=== PATIENT | female | born 1940 | race Hispanic/Latino ===

== ENCOUNTER 2020-02-09 15:31 | Inpatient (IN) | payer MEDICARE ==
[~2020-02-09] VITALS: Ht 165.1 cm; Wt 108.4 kg
[2020-02-09] MEDS ORDERED: NITROGLYCERIN 0.4 MG SL TAB SL PRN (17:15)
[2020-02-09] MEDS ORDERED: ACETAMINOPHEN 325 MG TAB PO PRN (17:15)
[2020-02-09] MEDS ORDERED: HYDRALAZINE HCL 20 MG/ML VIAL IV PRN (17:15)
[2020-02-09] MEDS ORDERED: MEPERIDINE-PF 25 MG/ML SYG ONE (17:23)
[2020-02-09] MEDS ORDERED: BUPIVACAINE/PF 0.25% 30ML VIAL IJ ONE (17:23)
[2020-02-09] MEDS ORDERED: MIDAZOLAM HCL 1 MG/ML 2ML VIAL ONE (17:23)
[2020-02-09] MEDS ORDERED: VANCOMYCIN 1GM+NS 250ML 500 ML IV ONE (17:24)
[2020-02-09] MEDS ORDERED: LIDOCAINE HCL 1% MDV 50ML VIAL ONE (17:24)
[2020-02-09 19:00] VITALS: BP 138/57
[2020-02-09] MEDS ORDERED: PHARMACY COMMUNICATION MISC SCH (19:00)
[2020-02-09] MEDS: FAMOTIDINE/PF 20 MG/2 ML VIAL IV SCH (20:30)
[2020-02-09 21:22] LABS: BASOPHILS % (AUTO) 0.8 % (0.0-5.0); EOSINOPHILS % (AUTO) 0.8 % (0.0-8.0); HEMATOCRIT 35.1 % (36-48); MEAN CORPUSCULAR HEMOGLOBIN 28.9 pg (27.0-33.0); MEAN CORPUSCULAR HGB CONC 30.8 g/dL (32.0-36.0); MEAN CORPUSCULAR VOLUME 93.9 fL (79-99); MONOCYTES % (AUTO) 1.6 % (3.0-13.0); NEUTROPHILS % (AUTO) 61.8 % (40.0-77.0); PLATELET COUNT (AUTO) 149 K/uL (130-400); RED BLOOD CELL COUNT(AUTO) 3.74 MIL/uL (4.00-5.50); RED CELL DISTRIBUTION WIDTH 16.1 % (11.0-15.5); WHITE BLOOD COUNT (AUTO) 1.3 K/uL (4.8-10.8)
[2020-02-09 21:32] LABS: INR 1.02 (0.85-1.15)
[2020-02-09 21:35] LABS: ALBUMIN 2.4 g/dL (3.5-5.0); CREATININE 1.3 mg/dL (0.5-1.5); POTASSIUM 3.6 mmol/L (3.5-5.1); TOTAL PROTEIN, SERUM 6.6 g/dL (6.0-8.3)
[2020-02-09 23:00] VITALS: BP 120/67
[2020-02-10 03:00] VITALS: BP 101/58
[2020-02-10 08:00] VITALS: BP 101/60
[2020-02-10] MEDS: FAMOTIDINE/PF 20 MG/2 ML VIAL IV SCH (08:17)
[2020-02-10 12:00] VITALS: BP 96/69
--- NOTE | 2020-02-10 13:18 | NUR ---
MED TAMI SPOKE TO MICA GRIFFIN, FROM [facility]; STATED SHE WOULD FAX PATIENT MEDICATION LIST TOY
--- NOTE | 2020-02-10 15:26 | NUR ---
INITIAL: Call placed to EC on Faces[employer]. Spoke w Anna Mcintyrea(pt's sister). Prior to admission pt was @ [facility]. 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 Per Anna, pt was mostly wc bound and requires assistance w ADLs. Anna mentions that dcp is for pt to return to [facility]. Informed Mrs. Bg Yin that there are currently no dc orders but CM will continue to follow along and wait for Md recommendations. Addendum: 02/10/20 at 1529 by KOTA SUÁREZ Amended: Links added.
[2020-02-10 16:00] VITALS: BP 93/49
[2020-02-10] MEDS ORDERED: FAMO20TA8 PO (16:14)
[2020-02-10] MEDS ORDERED: BETH10 PO (16:14)
[2020-02-10] MEDS ORDERED: CALC-190 PO (16:14)
[2020-02-10] MEDS ORDERED: CALC-1062 PO (16:14)
[2020-02-10] MEDS ORDERED: RISP2TAB22 PO (16:14)
[2020-02-10] MEDS ORDERED: FERR324T4 PO (16:14)
[2020-02-10] MEDS ORDERED: DOCU100C33 PO (16:14)
[2020-02-10] MEDS ORDERED: MEMA5TAB42 PO (16:14)
[2020-02-10] MEDS ORDERED: LORA-705 PO (16:14)
[2020-02-10] MEDS ORDERED: ASPI-556 PO (16:14)
[2020-02-10] MEDS ORDERED: CALC-17 PO (16:14)
[2020-02-10] MEDS ORDERED: POLY17PO4 PO (16:14)
[2020-02-10] MEDS ORDERED: LEVE-43 PO (16:14)
[2020-02-10] MEDS ORDERED: DONE10TA8 PO (16:14)
[2020-02-10] MEDS ORDERED: OXYB5TAB15 PO (16:14)
[2020-02-10] MEDS ORDERED: GABA-531 PO ×2 (16:14)
--- NOTE | 2020-02-10 16:30 | NUR ---
HANDOFF REPORT BEDSIDE HANDOFF REPORT GIVEN TO DORIS CORBIN; PATIENT RESTING COMFORTABLY IN BED AT THIS TIME
--- NOTE | 2020-02-10 18:20 | NUR ---
[facility] CALLED SENIOR CARE AT THIS TIME TO RESEND MEDICATION LIST, NO ANSWER FROM THE NURSE. PENDING CALL BACK.
--- NOTE | 2020-02-10 18:50 | NUR ---
DR. DONOVAN MAN AT BEDSIDE TO SEE AND EVALUATE PATIENT. HE WAS MADE AWARE THAT PATIENT HAS BEEN UNRESPONSIVE, ONLY RESPONDING TO PAINFUL STIMULI. HE STATED HE WILL RESUME HOME MEDICATIONS TO SEE IF SHE GOES BACK TO HER BASELINE. HE ALSO STATED TO CALL LONGTERM TO FIND OUT PATIENT'S BASELINE NEURO STATUS. NIGHT NURSE AWARE TO CALL LONGTERM.
[2020-02-10 19:00] VITALS: BP 91/48
[2020-02-10] MEDS ORDERED: POLYETHYLENE GLYCOL 3350 17 GM POWD.PACK PO PRN (19:15)
--- NOTE | 2020-02-10 19:40 | NUR ---
PM Assessment Received pt noted response only to painful stimulation, noted would randomly moved her head to side to side, non verbal. Hand mitten taken off as pt not noted to pull anything at this time. Both arms noted to be flaccid at this time. Pt does not follow nor responds to any command. Reported that Dr. Garcia had rounded on this pt aware of current status, & would like to verify from the [facility] pt activity & responsiveness prior to transfer. Oral care rendered noted would bite the swab gently but re- opens her mouth randomly, mouth breather.
[2020-02-10] MEDS: RISPERIDONE 1 MG TABLET PO SCH (21:00)
[2020-02-10] MEDS: DOCUSATE SODIUM 100 MG CAP PO SCH (21:00)
[2020-02-10] MEDS: DONEPEZIL HCL 5 MG TAB PO SCH (21:00)
[2020-02-10] MEDS: LEVETIRACETAM 500 MG TABLET PO SCH (21:00)
[2020-02-10] MEDS: OXYBUTYNIN CHLORIDE 5 MG TABLET PO SCH (21:00)
[2020-02-10] MEDS: GABAPENTIN 300 MG CAPSULE PO SCH (21:00)
--- NOTE | 2020-02-10 21:45 | NUR ---
Re: HS scheduled medications Page & called back ACCOUNT SERVICE REPRESENTATIVE Rimma Shea made aware that I was not able to give any of pt's home medications that was ordered to resumed this evening by Dr. Garcia, stated to hold tonight's dose & see how pt will be tomorrow as pt only responds to painful stimulations, vs stable.
[2020-02-10 23:00] VITALS: BP 95/54
[2020-02-11 03:00] VITALS: BP 118/51
--- NOTE | 2020-02-11 04:45 | NUR ---
Re-Assessment Pt noted awake at this time, able to response on simple open ended questions, offered some water, pt manage to hold the cup & drank about 50cc water. Hand mitten re- applied as pt starts to try to scratch her PPM incision site & pull her saline lock. Pt denies any pain/discomfort at this time.
[2020-02-11 07:38] LABS: HEMATOCRIT 33.3 % (36-48); MEAN CORPUSCULAR HEMOGLOBIN 28.8 pg (27.0-33.0); MEAN CORPUSCULAR HGB CONC 32.4 g/dL (32.0-36.0); MEAN CORPUSCULAR VOLUME 88.8 fL (79-99); PLATELET COUNT (AUTO) 116 K/uL (130-400); RED BLOOD CELL COUNT(AUTO) 3.75 MIL/uL (4.00-5.50); RED CELL DISTRIBUTION WIDTH 16.5 % (11.0-15.5); WHITE BLOOD COUNT (AUTO) 9.6 K/uL (4.8-10.8)
[2020-02-11 07:48] LABS: ALBUMIN 2.1 g/dL (3.5-5.0); BILIRUBIN,TOTAL 0.5 mg/dL (0.2-1.0); POTASSIUM 4.1 mmol/L (3.5-5.1); TOTAL PROTEIN, SERUM 6.1 g/dL (6.0-8.3)
[2020-02-11 08:00] VITALS: BP 98/61
[2020-02-11] MEDS: ASPIRIN 81 MG EC TAB PO SCH (08:33)
[2020-02-11] MEDS: DOCUSATE SODIUM 100 MG CAP PO SCH ×3 (08:34→20:47)
[2020-02-11] MEDS: BETHANECHOL PO SCH ×2 (08:34→20:19)
[2020-02-11] MEDS: MEMANTINE HCL 5 MG TABLET PO SCH (08:34)
[2020-02-11] MEDS: CALCIUM 600 + VITAMIN D 400 TABLET PO SCH (08:34)
[2020-02-11] MEDS: FERROUS SULFATE 325 MG TABLET.DR PO SCH (08:34)
[2020-02-11] MEDS: LEVETIRACETAM 500 MG TABLET PO SCH (08:34)
[2020-02-11] MEDS: LORATADINE 10 MG TABLET PO SCH (08:34)
[2020-02-11] MEDS: FAMOTIDINE 20MG TAB 20 MG TAB PO SCH (08:35)
[2020-02-11] MEDS: OXYBUTYNIN CHLORIDE 5 MG TABLET PO SCH ×3 (08:35→20:48)
[2020-02-11] MEDS: GABAPENTIN 300 MG CAPSULE PO SCH ×3 (08:35→20:48)
[2020-02-11] MEDS: CALCIUM CARBONATE 500 MG TABLET PO SCH (08:35)
[2020-02-11 09:37] LABS: BAND NEUTROPHILS % (MANUAL) 2 % (0-2); EOSINOPHILS % (MANUAL) 22 % (1-6); LYMPHOCYTES % (MANUAL) 22 % (22-44); MONOCYTES % (MANUAL) 1 % (2-9); PLATELET MORPHOLOGY COMMENT SLIGHTLY DECREASED; REACTIVE LYMPHOCYTES 2 % (0-0); SEGMENTED NEUTROPHILS % 51 % (40-70)
--- NOTE | 2020-02-11 10:00 | NUR ---
[address] Garcia called and made aware patient is lethargic and unable to eat received orders for infectious workup and neurology consult.
[2020-02-11] MEDS ORDERED: DEXTROSE 50%-WATER 50 ML DISP.SYRIN IV ONE (10:04)
[2020-02-11] MEDS ORDERED: SODIUM CHLORIDE 0.9% 500ML 500 ML IV ONE ×2 (10:15→10:22)
[2020-02-11] MEDS ORDERED: COMPOUND IV MISC 1 EACH IVSOLN MISC PRN (10:45)
[2020-02-11 10:59] LABS: % IRON SATURATION 34.2 % (22-44)
[2020-02-11] MEDS: LEVETIRACETAM 500 MG in SODIUM CHLORIDE 0.9% 100 ML IV SCH ×2 (11:02→20:18)
[2020-02-11 11:21] LABS: POTASSIUM 3.9 mmol/L (3.5-5.1)
[2020-02-11 11:22] LABS: APPEARANCE,URINE Turbid (CLEAR); BILIRUBIN,URINE Small (NEGATIVE); COLOR,URINE Dark Yellow (YELLOW); GLUCOSE, URINE (UA) Negative (NEGATIVE); KETONES,URINE Trace mg/dL (NEGATIVE); LEUKOCYTE ESTERASE ,URINE Large (NEGATIVE); NITRATE,URINE Positive (NEGATIVE); OCCULT BLOOD,URINE Moderate (NEGATIVE); PROTEIN,URINE POS 1+ mg/dL (NEGATIVE)
[2020-02-11 11:51] LABS: BACTERIA,URINE Moderate /HPF (None Seen); MUCUS,URINE Few LPF (None Seen); WBC,URINE Full Field /HPF (0-1)
[2020-02-11 12:00] VITALS: BP 112/51
[2020-02-11 16:00] VITALS: BP 96/54
[2020-02-11] MEDS ORDERED: GLUCAGON 1MG KIT 1 MG ML IM PRN (17:00)
[2020-02-11] MEDS ORDERED: DEXTROSE 50%-WATER 50 ML DISP.SYRIN IV PRN (17:00)
--- NOTE | 2020-02-11 18:26 | NUR ---
Wound care Patient placed on waffle matress wound care consult in place allyvn placed on coccyx and on left abdomen skin tear.
[2020-02-11 20:00] VITALS: BP 106/57
[2020-02-11] MEDS ORDERED: LEVOFLOXACIN 500 MG/D5W 100 ML 100 ML IV SCH (20:00)
--- NOTE | 2020-02-11 20:00 | NUR ---
ASSESSMENT PATIENT APPEARS LETHARGIC (BASELINE FROM DAY SHIFT). PATIENT MOANS WITH SOME PAINFUL STIMULI BUT DOES NOT OPEN EYES OR RESPOND TO ANY QUESTIONS AND DOES NOT FOLLOW SIMPLE COMMANDS. MD MADE AWARE OF PATIENTS STATUS NEURO CONSULT PENDING FOR THE AM. UNABLE TO TAKE PM MEDICATIONS DUE TO LETHARGY. WILL CONTINUE TO MONITOR PATIENT.
[2020-02-11] MEDS: DEXTROSE 5 % AND 0.9 % NACL 1,000 ML IV SCH (20:18)
[2020-02-11] MEDS: DONEPEZIL HCL 5 MG TAB PO SCH ×2 (20:19→20:47)
[2020-02-11] MEDS: RISPERIDONE 1 MG TABLET PO SCH ×2 (20:19→20:48)
[2020-02-12 00:30] VITALS: BP 109/55
[2020-02-12 04:33] VITALS: BP 125/73
[2020-02-12 05:53] LABS: HEMATOCRIT 30.4 % (36-48); MEAN CORPUSCULAR HEMOGLOBIN 29.3 pg (27.0-33.0); MEAN CORPUSCULAR HGB CONC 32.2 g/dL (32.0-36.0); PLATELET COUNT (AUTO) 87 K/uL (130-400); RED BLOOD CELL COUNT(AUTO) 3.34 MIL/uL (4.00-5.50); RED CELL DISTRIBUTION WIDTH 16.5 % (11.0-15.5); WHITE BLOOD COUNT (AUTO) 5.9 K/uL (4.8-10.8)
[2020-02-12 06:20] LABS: ALBUMIN 2.1 g/dL (3.5-5.0); BILIRUBIN,TOTAL 0.4 mg/dL (0.2-1.0); CREATININE 1.7 mg/dL (0.5-1.5); MAGNESIUM 1.8 mg/dL (1.80-2.40); POTASSIUM 3.7 mmol/L (3.5-5.1); TOTAL PROTEIN, SERUM 5.8 g/dL (6.0-8.3)
[2020-02-12] MEDS: DEXTROSE 5 % AND 0.9 % NACL 1,000 ML IV SCH ×2 (06:31→12:28)
[2020-02-12 07:21] LABS: EOSINOPHILS % (MANUAL) 31 % (1-6); LYMPHOCYTES % (MANUAL) 16 % (22-44); MONOCYTES % (MANUAL) 2 % (2-9); SEGMENTED NEUTROPHILS % 51 % (40-70)
[2020-02-12 07:22] LABS: MAN.DIFF COMMENT-IMPRESSION MANUAL DIFFERENTIAL; PLATELET MORPHOLOGY COMMENT DECREASED
[2020-02-12 07:30] VITALS: BP 116/72
[2020-02-12] MEDS: ASPIRIN 81 MG EC TAB PO SCH (08:05)
[2020-02-12] MEDS: CALCIUM CARBONATE 500 MG TABLET PO SCH (08:05)
[2020-02-12] MEDS: DOCUSATE SODIUM 100 MG CAP PO SCH ×2 (08:05→20:13)
[2020-02-12] MEDS: CALCIUM 600 + VITAMIN D 400 TABLET PO SCH (08:06)
[2020-02-12] MEDS: OXYBUTYNIN CHLORIDE 5 MG TABLET PO SCH ×2 (08:06→20:12)
[2020-02-12] MEDS: GABAPENTIN 300 MG CAPSULE PO SCH ×3 (08:06→20:13)
[2020-02-12] MEDS: FERROUS SULFATE 325 MG TABLET.DR PO SCH (08:06)
[2020-02-12] MEDS: BETHANECHOL PO SCH ×2 (08:06→20:12)
[2020-02-12] MEDS: MEMANTINE HCL 5 MG TABLET PO SCH (08:06)
[2020-02-12] MEDS: FAMOTIDINE 20MG TAB 20 MG TAB PO SCH (08:06)
[2020-02-12] MEDS: LORATADINE 10 MG TABLET PO SCH (08:06)
[2020-02-12] MEDS: LEVETIRACETAM 500 MG in SODIUM CHLORIDE 0.9% 100 ML IV SCH ×2 (08:12→20:21)
--- NOTE | 2020-02-12 10:20 | NUR ---
DR. WRAY IS MAKING HIS ROUNDS. INFORMED MD THAT DURING MY ASSESSMENT, PT WAS ABLE TO OPEN HER EYES, TALK, AND FOLLOW VERY SIMPLE COMMANDS. SHE ALSO ATE A BIT OF BREAKFAST AND TOOK HER MEDS CRUSHED WITH APPLE SAUCE.
[2020-02-12 11:00] VITALS: BP 122/81
--- NOTE | 2020-02-12 11:10 | NUR ---
DR. ACEVES IS IN TO SEE PATIENT. INFORMED MD ABOUT MEDS THAT WERE ADMINISTERED TODAY. MD ORDERED CHANGES TO MEDS: NEURONTIN AND NAMENDA. WILL START DOSES TOMORROW THESE MEDS WERE ALREADY ADMINISTERED TODAY IN AM.
[2020-02-12] MEDS ORDERED: PHARMACY COMMUNICATION MISC SCH (11:15)
[2020-02-12] MEDS ORDERED: COMPOUND IV REFRIGERATED 1 EACH IVSOLN MISC PRN (13:45)
--- NOTE | 2020-02-12 15:16 | NUR ---
PATIENT IS ASLEEP AT THIS TIME. SIDERAILS UP X 4. CALL LIGHT WITHIN REACH. BED ALARM ON.
--- NOTE | 2020-02-12 15:29 | NUR ---
[facility] CONSULT PATIENT ASSESSED REQUESTED: [facility] RECOMMENDATIONS SUBMITTED AND REPORT GIVEN TO PATIENT'S NURSE ALBERTO. Addendum: 02/12/20 at 1532 by TAMIE WEINSTEIN LVN LVN W Amended: Links added.
[2020-02-12 16:00] VITALS: BP 99/55
[2020-02-12 19:59] VITALS: BP 102/62
[2020-02-12] MEDS: DONEPEZIL HCL 5 MG TAB PO SCH (20:12)
[2020-02-12] MEDS: RISPERIDONE 1 MG TABLET PO SCH (20:12)
[2020-02-12] MEDS: HONEY 1 APPL/ML TUBE TP SCH (20:13)
[2020-02-13 00:13] VITALS: BP 109/67
[2020-02-13] MEDS: DEXTROSE 5 % AND 0.9 % NACL 1,000 ML IV SCH ×2 (03:00→11:51)
[2020-02-13 04:32] VITALS: BP 121/72
[2020-02-13 05:34] LABS: BASOPHILS % (AUTO) 0.2 % (0.0-5.0); EOSINOPHILS % (AUTO) 34.3 % (0.0-8.0); HEMATOCRIT 30.3 % (36-48); LYMPHOCYTES % (AUTO) 28.4 % (21.0-51.0); MEAN CORPUSCULAR HEMOGLOBIN 29.1 pg (27.0-33.0); NEUTROPHILS % (AUTO) 29.7 % (40.0-77.0); PLATELET COUNT (AUTO) 67 K/uL (130-400); RED BLOOD CELL COUNT(AUTO) 3.33 MIL/uL (4.00-5.50); RED CELL DISTRIBUTION WIDTH 16.5 % (11.0-15.5); WHITE BLOOD COUNT (AUTO) 4.7 K/uL (4.8-10.8)
[2020-02-13 05:49] LABS: CREATININE 1.2 mg/dL (0.5-1.5); MAGNESIUM 1.9 mg/dL (1.80-2.40); PHOSPHORUS 3.4 mg/dL (2.5-4.9); POTASSIUM 3.7 mmol/L (3.5-5.1)
[2020-02-13 07:00] VITALS: BP 104/66
[2020-02-13] MEDS: BETHANECHOL PO SCH ×2 (09:00→21:00)
[2020-02-13] MEDS: CYANOCOBALAMIN (VITAMIN B-12) 1,000 MCG TABLET PO SCH (10:03)
[2020-02-13] MEDS: CALCIUM CARBONATE 500 MG TABLET PO SCH (10:03)
[2020-02-13] MEDS: CALCIUM 600 + VITAMIN D 400 TABLET PO SCH (10:03)
[2020-02-13] MEDS: ASPIRIN 81 MG EC TAB PO SCH (10:03)
[2020-02-13] MEDS: FAMOTIDINE 20MG TAB 20 MG TAB PO SCH (10:03)
[2020-02-13] MEDS: DOCUSATE SODIUM 100 MG CAP PO SCH ×2 (10:05→21:20)
[2020-02-13] MEDS: FERROUS SULFATE 325 MG TABLET.DR PO SCH (10:05)
[2020-02-13] MEDS: OXYBUTYNIN CHLORIDE 5 MG TABLET PO SCH ×2 (10:05→21:20)
[2020-02-13] MEDS: LORATADINE 10 MG TABLET PO SCH (10:05)
[2020-02-13] MEDS: FOLIC ACID 5 MG/ML 10 ML VIAL IV SCH (10:16)
[2020-02-13] MEDS: LEVETIRACETAM 500 MG in SODIUM CHLORIDE 0.9% 100 ML IV SCH ×2 (10:17→21:20)
[2020-02-13 11:00] VITALS: BP 124/67
[2020-02-13 16:00] VITALS: BP 111/72
[2020-02-13] MEDS: MEMANTINE HCL 5 MG TABLET PO SCH (17:07)
[2020-02-13] MEDS ORDERED: LEVOFLOXACIN 250 MG/D5W 50ML 50 ML IVPB SCH (20:00)
[2020-02-13 20:41] VITALS: BP 130/60
[2020-02-13] MEDS: DONEPEZIL HCL 5 MG TAB PO SCH (21:19)
[2020-02-13] MEDS: GABAPENTIN 300 MG CAPSULE PO SCH (21:19)
[2020-02-13] MEDS: RISPERIDONE 1 MG TABLET PO SCH (21:19)
[2020-02-13] MEDS: HONEY 1 APPL/ML TUBE TP SCH (21:20)
[2020-02-14 00:01] VITALS: BP 108/57
[2020-02-14] MEDS: DEXTROSE 5 % AND 0.9 % NACL 1,000 ML IV SCH ×2 (02:03→10:09)
[2020-02-14 04:10] VITALS: BP 103/64
[2020-02-14 04:47] LABS: BASOPHILS % (AUTO) 0.2 % (0.0-5.0); EOSINOPHILS % (AUTO) 21.3 % (0.0-8.0); HEMATOCRIT 29.6 % (36-48); LYMPHOCYTES % (AUTO) 30.5 % (21.0-51.0); MEAN CORPUSCULAR HEMOGLOBIN 28.6 pg (27.0-33.0); MEAN CORPUSCULAR HGB CONC 31.4 g/dL (32.0-36.0); MEAN CORPUSCULAR VOLUME 91.1 fL (79-99); MONOCYTES % (AUTO) 6.4 % (3.0-13.0); NEUTROPHILS % (AUTO) 40.9 % (40.0-77.0); PLATELET COUNT (AUTO) 63 K/uL (130-400); RED BLOOD CELL COUNT(AUTO) 3.25 MIL/uL (4.00-5.50); RED CELL DISTRIBUTION WIDTH 16.3 % (11.0-15.5); WHITE BLOOD COUNT (AUTO) 5.8 K/uL (4.8-10.8)
[2020-02-14 04:58] LABS: MAGNESIUM 1.8 mg/dL (1.80-2.40); PHOSPHORUS 3.3 mg/dL (2.5-4.9); POTASSIUM 3.7 mmol/L (3.5-5.1)
[2020-02-14] MEDS: BETHANECHOL PO SCH (09:00)
[2020-02-14] MEDS: FOLIC ACID 5 MG/ML 10 ML VIAL IV SCH ×2 (09:00→10:53)
[2020-02-14 09:38] VITALS: BP 92/58
[2020-02-14] MEDS: CEFTAZIDIME PENTAHYDRATE 1 GM/VIAL IVP SCH ×2 (10:06→17:01)
[2020-02-14] MEDS: ASPIRIN 81 MG EC TAB PO SCH (10:07)
[2020-02-14] MEDS: LORATADINE 10 MG TABLET PO SCH (10:07)
[2020-02-14] MEDS: CALCIUM CARBONATE 500 MG TABLET PO SCH (10:07)
[2020-02-14] MEDS: FERROUS SULFATE 325 MG TABLET.DR PO SCH (10:07)
[2020-02-14] MEDS: CALCIUM 600 + VITAMIN D 400 TABLET PO SCH (10:07)
[2020-02-14] MEDS: FAMOTIDINE 20MG TAB 20 MG TAB PO SCH (10:07)
[2020-02-14] MEDS: DOCUSATE SODIUM 100 MG CAP PO SCH (10:07)
[2020-02-14] MEDS: OXYBUTYNIN CHLORIDE 5 MG TABLET PO SCH (10:07)
[2020-02-14] MEDS: CYANOCOBALAMIN (VITAMIN B-12) 1,000 MCG TABLET PO SCH (10:07)
[2020-02-14] MEDS: LEVETIRACETAM 500 MG in SODIUM CHLORIDE 0.9% 100 ML IV SCH (10:53)
--- NOTE | 2020-02-14 11:00 | NUR ---
SPOKE TO LEONARDO BARRAZA ABOUT TRANSFER BCK TO [facility] ADVISED CANNOT ACCEPT PATIENT UNTIL ALL TESTING OF RESIDENTS AND STAFF IS COMPLETED, WILL FOLLOW UP Addendum: 02/14/20 at 1229 by OSMEL HERNANDEZ RN CM Amended: Links added.
[2020-02-14 11:30] VITALS: BP 113/67
[2020-02-14 15:30] VITALS: BP 114/59
--- NOTE | 2020-02-14 15:30 | NUR ---
F/C REMOVED WITH Tatiana CEJA, FEMALE PCP PRESENT. PT. TOLERATED WELL. ADULT BRIEF IN PLACE.
[2020-02-14] MEDS ORDERED: FUROSEMIDE 10 MG/ML 4ML VIAL IV SCH (16:30)
[2020-02-14] MEDS: MEMANTINE HCL 5 MG TABLET PO SCH (17:17)
--- NOTE | 2020-02-14 17:37 | NUR ---
Debbie ARAGON RN/CM STATES SHE MADE FAMILY MEMBERS AWARE OF PT.'S DISCHARGE.
--- NOTE | 2020-02-14 18:19 | NUR ---
REPORT TO FERNIE MCDERMOTT LVN AT [facility].
--- NOTE | 2020-02-14 19:02 | NUR ---
CALLED PT.'S ALINA RIOS PER CELL PHONE NUMBER LISTED ON ADMISSION DATABASE, NO RESPONSE.
--- NOTE | 2020-02-14 19:15 | NUR ---
RECEIVED CALL FROM PT.'S ALINA RIOS, INFORMED OF PT. TO BE DISCHARGED TO [facility], VERBALIZED UNDERSTANDING AND TELEPHONE NUMBER TO [facility] PROVIDED.
== END 2020-02-14 19:30 | DRG 853 ==
LOC: 2CH 16:52 → 2DH 19:09
PROVIDERS: ADMIT Internal Medicine; ATTEND Internal Medicine
PROC: 0JH606Z Insertion of Pacemaker, Dual Chamber into Chest Subcutaneous Tissue and Fascia, Open Approach (ICD-10-PCS; principal; 2020-02-09)
PROC: 02H63JZ Insertion of Pacemaker Lead into Right Atrium, Percutaneous Approach (ICD-10-PCS; 2020-02-09)
PROC: 02HK3JZ Insertion of Pacemaker Lead into Right Ventricle, Percutaneous Approach (ICD-10-PCS; 2020-02-09)
DX: A41.9 Sepsis, unspecified organism (principal); J18.9 Pneumonia, unspecified organism; G93.41 Metabolic encephalopathy; I44.2 Atrioventricular block, complete; N39.0 Urinary tract infection, site not specified; D61.818 Other pancytopenia; G93.40 Encephalopathy, unspecified; Z16.24 Resistance to multiple antibiotics; K21.9 Gastro-esophageal reflux disease without esophagitis; M81.0 Age-related osteoporosis without current pathological fracture; F03.90 Unspecified dementia, unspecified severity, without behavioral disturbance, psychotic disturbance, mood disturbance, and anxiety; Z20.828 Contact with and (suspected) exposure to other viral communicable diseases; B96.1 Klebsiella pneumoniae [K. pneumoniae] as the cause of diseases classified elsewhere; B96.20 Unspecified Escherichia coli [E. coli] as the cause of diseases classified elsewhere; E66.9 Obesity, unspecified; Z68.39 Body mass index [BMI] 39.0-39.9, adult; E78.5 Hyperlipidemia, unspecified; R00.1 Bradycardia, unspecified; I12.9 Hypertensive chronic kidney disease with stage 1 through stage 4 chronic kidney disease, or unspecified chronic kidney disease; I48.91 Unspecified atrial fibrillation; L89.152 Pressure ulcer of sacral region, stage 2; N18.9 Chronic kidney disease, unspecified; Z88.1 Allergy status to other antibiotic agents; Z88.0 Allergy status to penicillin; Z87.440 Personal history of urinary (tract) infections
CPT/HCPCS: 33208; 36415; 70450; 71045; 80048; 80053; 81001; 82040; 82607; 82728; 82746; 82948; 83540; 83550; 83735; 84100; 84145; 85025; 85610; 87040; 87077; 87088; 87186; 87633; 87635; 93005; 99156; 99157; C1785; G0378; J0713; J1940; J1953; J1956; J2175; J2250; J3370; J3490; J7042; J7070